=== PATIENT | female | born 1960 | race Caucasian/White ===

== ENCOUNTER 2016-04-03 14:59 | Emergency (ER) | payer OTHER ==
--- NOTE | 2016-04-03 16:33 | DIAGNOSTIC IMAGING REPORT ---
PROCEDURE: XR KNEE 4 VIEWS - LEFT INDICATION: TRAUMA/INJURY TECHNIQUE: Four views. COMPARISON: MRI of the left knee dated 06/12/2007 FINDINGS: No fracture or dislocation. IMPRESSION: 1. Osteoarthritis. No fracture or dislocation.
--- NOTE | 2016-04-03 16:51 | ED CLINICAL REPORT ---
Clinical Report - Physicians/Mid Levels [facility] [address] [place] [address] 04/03/2016 15:00 [id number] Time Seen: 15:23 Apr 03 2016. Arrived- By private vehicle. Historian- patient. HISTORY OF PRESENT ILLNESS Chief Complaint: Injury to left knee. The injury happened just prior to arrival. Occurred at home. The patient sustained a direct blow. Patient did not fall. This was not an incised wound. Patient is experiencing mild pain. Patient denies injury to the head or neck. (fell today on the left side of the knee, as well as left wrist. Reports unable to straighten her right leg, consequently lost balance while doing some wood work, dealing with kindling/ fire wood etc). REVIEW OF SYSTEMS The patient has no pain on weight bearing. All systems otherwise negative, except as recorded above. PAST HISTORY Problems: Prior Injury, Same Area. Fibromyalgia. Constipation. Vomiting. Abdominal Pain. Back Injury. Intervertebral Disc Disease. Sciatica. Hematuria. Substance Abuse. DVT - Deep Venous Thrombosis. Fall. Contusion. Tetanus Status. Immunizations. Glaucoma. Back Pain. Bipolar Disorder. Thyroid Disease. Chronic Headache. Headache. LNMP - Last Normal Menstrual Period. Migraine Headache. Additional Surgeries: Bariatric Surgery. Cholecystectomy. Fracture Repair. Gastric bypass. Hip Surgery. Hysterectomy. Knee Surgery. Right foot surgery x 7. Shoulder Surgery. Medications: Stool Softener Oral. Advil Oral. Probiotic Oral. Vitamins Oral. Zofran Oral 4 mg, daily. Ambien Oral 12.5 mg, at bedtime. LORazepam Oral 0.5 mg, daily. Timoptic Ophthalmic. Lumigan Ophthalmic. Levothyroxine Sodium Oral 25 mcg, daily. movantik. LaMICtal Oral (Tablet 150 mg) 1 tablet, at bedtime. SEROquel Oral (Tablet 400 mg), at bedtime. Promethazine HCl Oral 25 mg, 4x a day. Acyclovir Oral 1 gm, daily. TiZANidine HCl Oral 4 mg, 4x a day. Gralise Oral (Tablet 600 mg) 4 tabs, daily. OxyCODONE HCl Oral 10 mg, 4x a day. Allergies: None. SOCIAL HISTORY Never smoker. No alcohol use or drug use. ADDITIONAL NOTES The nursing notes have been reviewed. PHYSICAL EXAM Vital Signs: 04/03/2016 15:16 BP: 110/71. HR: 104. RR: 18. O2 saturation: 98%. Temp: 98.1 F. Pain level now: 8/10. Appearance: Alert. No acute distress. Head: Head atraumatic. CVS: Normal heart rate and rhythm. Respiratory: No respiratory distress. Breath sounds normal. Skin: Skin warm. Normal skin color. (abrasion to escalante surfce of left distal forearm,). Extremities: Left knee: erythema, tenderness, swelling and ecchymosis located in the lateral joint line. Limited ROM secondary to pain (diminished flexion). (just distal to knee, ateral spect with swelling). No ligamentous laxity present. No joint effusion. No laceration, foreign body or deformity. Neuro, Vascular and Tendons: Vascular status intact. No pulse deficit present. Motor intact. No functional tendon deficit. Gait: No limping gait. Neuro: Oriented X 3. LABS, X-RAYS, AND EKG Lt Knee X-ray: (IMPRESSION: 1. Osteoarthritis. No fracture or dislocation. Electronically Final signed by:Saurabh Robles MD 04/03/2016 4:37:20 PM). PROGRESS AND PROCEDURES Course of Care: no snuff box tenderness, full rom of wrist. no signs of acute knee fx. No other injury. mechanical fall. Stable. No sob/ chest pain. No head injury. 04/03/2016 15:16 BP: 110/71. HR: 104. RR: 18. O2 saturation: 98%. Temp: 98.1 F. Pain level now: 8/10. Patient is stable. Symptoms better. Patient/family counseled. Disposition: Discharged. CLINICAL IMPRESSION Contusion to the left wrist, left knee and left lower leg. INSTRUCTIONS Apply ice. Elevate affected areas above chest level. You may walk and bear weight as tolerated. OTC Medications: Take OTC medications according to label instructions. Available over the counter. Acetaminophen (available over the counter): take according to label instructions. Motrin (available over the counter): take according to label instructions. Follow-up: Follow up with your doctor as needed. (Electronically signed by Nae Herring P.A.-C 04/03/2016 17:07)
--- NOTE | 2016-04-03 16:51 | ED ORDER SUMMARY ---
..... Patient: SANTOS ESCALANTE [facility] VisitID: [id number] [place] [address] 55y, F Registration Date/Time: 04/03/2016 ORDER SHEET Weight: 49.8 kg (stated) Allergies: None GENERAL ORDERS: Knee 4V Left Urgent (15:29 04/03/2016 EKoroleva P.A.-C) (Ack 15:36 NHouse ER Tech1) (17:31 Shi R.N.) Rhett Wrap (16:30 04/03/2016 EKoroleva P.A.-C) (16:42 LNations ER Tech1) MEDICATION ORDERS: Dilaudid IM 1 mg (HIGH ALERT MEDICATION, NOW) (16:49 04/03/2016 EKoroleva P.A.-C) (Ack 16:52 Shi R.N.) (17:18 Shi R.N.) Phenergan IM 12.5 mg (HIGH ALERT MEDICATION, NOW) (16:49 04/03/2016 EKoroleva P.A.-C) (Ack 16:52 Shi R.N.) (17:19 Shi R.N.) IV FLUIDS: ORDER SHEET NOTES: [Electronically signed by Nae HerringAValencia-C (17:07 04/03/2016)] [Electronically signed by Belkys Kwok R.N. (17:32 04/03/2016)] [Electronically locked/signed by Belkys Kwok R.N. (17:32 04/03/2016)]
--- NOTE | 2016-04-03 16:51 | ED ORDER SUMMARY ---
..... Patient: SANTOS ESCALANTE [facility] VisitID: [id number] [place] [address] 55y, F Registration Date/Time: 04/03/2016 ORDER SHEET Weight: 49.8 kg (stated) Allergies: None GENERAL ORDERS: Knee 4V Left Urgent (15:29 04/03/2016 EKoroleva P.A.-C) (Ack 15:36 NHouse ER Tech1) (17:31 Shi R.N.) Rhett Wrap (16:30 04/03/2016 EKoroleva P.A.-C) (16:42 LNations ER Tech1) MEDICATION ORDERS: Dilaudid IM 1 mg (HIGH ALERT MEDICATION, NOW) (16:49 04/03/2016 EKoroleva P.A.-C) (Ack 16:52 Shi R.N.) (17:18 Shi R.N.) Phenergan IM 12.5 mg (HIGH ALERT MEDICATION, NOW) (16:49 04/03/2016 EKoroleva P.A.-C) (Ack 16:52 Shi R.N.) (17:19 Shi R.N.) IV FLUIDS: ORDER SHEET NOTES: [Electronically signed by Nae HerringAValencia-C (17:07 04/03/2016)] [Electronically signed by Belkys Kwok R.N. (17:32 04/03/2016)] [Electronically locked/signed by Belkys Kwok R.N. (17:32 04/03/2016)]
--- NOTE | 2016-04-03 16:51 | ED NURSING NOTES ---
Clinical Report - Nurses [facility] [address] [place] [address] 04/03/2016 15:00 [id number] Triage time 15:16 Apr 03 2016. Acuity: LEVEL 4. Chief Complaint: FALL, onto a tile surface. 15:27 04/03/16. Alert. No acute distress. SEPSIS SCREEN: Sepsis Screen. Negative (no infection suspected/documented). MURALI COMA SCORE: [place] Coma Scale: 15- eyes open spontaneously (4); best verbal response- oriented x 4 (5); best motor response- obeys commands (6). --15:27 Akila Thomas 15:16 04/03/16. BP: 110/71. HR: 104. RR: 18. O2 saturation: 98% on room air. Temp: 98.1 F. Pain level now: 8/10. --15:27 Akila Thomas 15:27 04/03/16. --15:27 Akila Thomas. Weight: 49.8 kg stated. Height/Length: 60 inches Per Patient. BMI: 21.4. --15:27 Akila Thomas. Medications OxyCODONE HCl Oral 10 mg, 4x a day. --15:20 Akila Thomas Gralise Oral (Tablet 600 mg) 4 tabs, daily. --15:21 Akila Thomas TiZANidine HCl Oral 4 mg, 4x a day. --15:21 Akila Thomas Acyclovir Oral 1 gm, daily. --15:21 Akila Thomas Promethazine HCl Oral 25 mg, 4x a day. --15:21 Aklia Thomas SEROquel Oral (Tablet 400 mg), at bedtime. --15:22 Akila Thomas LaMICtal Oral (Tablet 150 mg) 1 tablet, at bedtime. --15:22 Akila Thomas movantik. --15:22 Akila Thomas Levothyroxine Sodium Oral 25 mcg, daily. --15:22 Akila Thomas Lumigan Ophthalmic. --15:22 Akila Thomas Timoptic Ophthalmic. --15: Akila Thomas LORazepam Oral 0.5 mg, daily. --15:23 Akila Thomas Ambien Oral 12.5 mg, at bedtime. --15:23 Akila Thomas Zofran Oral 4 mg, daily. --15:23 Akila Thomas Vitamins Oral. --15:24 Akila Thomas Probiotic Oral. --15:24 Akila Thomas Advil Oral. --15:24 Akila Thomas Stool Softener Oral. --15:24 Akila Thomas. Medication/allergy information source: the patient. --15: Akila Thomas. Allergies None. --15:24 Akila Thomas. History Arrived by EMS. Historian: patient. Accompanied by family. Location of injuries: lower back, mid-back, left wrist and left knee. This occurred just prior to arrival. ( Pt states that she lost her balance when putting firewood into fire. No LOC, denies dizziness. Pt walked down stairs to get to [facility], was able to bear weight.). She has had extremity pain, back pain and trouble walking. Limited ROM present. No loss of consciousness. No alteration in mental status, neck pain or difficulty breathing. Treatment ADVERTISING COPYWRITER: Ice and splint. See EMS report. Trauma activation: Pre-hospital notification of patient arrival was received. PAST MEDICAL HX: No history of diabetes mellitus, heart disease, stroke or hypertension. No history of dementia or osteoporosis. Tetanus status: up-to-date. Immunizations: up-to-date. SOCIAL HX: Never smoker. No alcohol use or drug use. FALL RISK ASSESSMENT: Fall risk assessment completed. No fall risk identified. NUTRITIONAL RISK ASSESSMENT: The nutritional risk assessment revealed no deficiencies. FUNCTIONAL ASSESSMENT: Functional assessment: no impairments noted. LEARNING NEEDS ASSESSMENT: The learning needs assessment revealed no barriers. SKIN INTEGRITY ASSESSMENT: Skin integrity risk assessment completed. No skin integrity risk identified. --15:27 Akila Thomas Primary physician (Pillo). --15:27 Akila Thomas. PROBLEMS: Prior Injury, Same Area. Fibromyalgia. Constipation. Vomiting. Abdominal Pain. Back Injury. Intervertebral Disc Disease. Sciatica. Hematuria. Substance Abuse. DVT - Deep Venous Thrombosis. Fall. Contusion. Tetanus Status. Immunizations. Glaucoma. Back Pain. Bipolar Disorder. Thyroid Disease. Chronic Headache. Headache. LNMP - Last Normal Menstrual Period. Migraine Headache. --15:25 Akila Thomas. ADDITIONAL SURGERIES: Bariatric Surgery. Cholecystectomy. Fracture Repair. Gastric bypass. Hip Surgery. Hysterectomy. Knee Surgery. Right foot surgery x 7. Shoulder Surgery. --15:25 Akila Thomas. Assessment The patient states feels the same. GENERAL / NEURO / PSYCH: Alert. Oriented X 4. Appears in pain. Patient appears calm and cooperative. SKIN: Mucous membranes are pink. Skin is warm and dry. --15:27 Akila Thomas. Interventions ID band on patient. --15:27 Akila Thomas. PHYSICAL ASSESSMENT 16:02 04/03/16. To room via wheelchair. Patient gowned. GENERAL / NEURO / PSYCH: Alert. Oriented X 4. Appears in pain. HEENT: Pupils equal, round and reactive to light. Head non-tender. RESPIRATORY: Respirations not labored. CVS: Pulses within normal limits. Capillary refill less than 2 seconds. GI / : Abdomen soft and nontender. EXTREMITIES: Extremities exhibit normal ROM. Neuro-vascular status intact to the extremity. Left knee: tenderness and ecchymosis. SKIN: Skin intact. Skin is warm and dry. --16:47 Akila Thomas. 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 --16:35 Neris Greene ER Tech1 15:30 04/03/16. Two patient identifiers checked. Patient placed in chair. Brakes of chair on. Patient ready for evaluation- chart flagged and PA notified. --16:50 Akila Thomas 17:08 04/03/2016 Dilaudid (HYDROmorphone HCl PF) IM 1 mg given. Given in the left ventral gluteus. Allergies verified, confirmed 5 rights and sedative warning given to the patient. --17:18 Belkys Kwok R.N. 17:09 04/03/2016 Phenergan (Promethazine HCl) IM 12.5 mg given. Given in the left ventral gluteus. Allergies verified, confirmed 5 rights and sedative warning given to the patient. --17:19 Belkys Kwok R.N. 17:05. The patient is calm. Overall patient status is the same- she states feels the same (had to assist pt to get her shoes on and then to BR). GENERAL / NEURO / PSYCH: Alert. Oriented X 4. RESPIRATORY: No respiratory distress. --17:31 Belkys Kwok R.N. DISPOSITION / DISCHARGE Departure time: 1705. Condition at departure: unchanged. Fall risk assessment completed. Risk factors identified include patient medications and impairment of mobility. No learning barriers present. Discharge instructions provided and reviewed with the patient. Reviewed medication(s). Prescription(s) given to the patient. Patient verbalized understanding. Written instructions provided in Marshallese. The patient was discharged home and accompanied by spouse. She left the Emergency Department ambulatory and via private vehicle. --17:30 Belkys Kwok R.N. 17:05 04/03/16. BP: 101/61. HR: 95. RR: 16. O2 saturation: 100% on room air. Pain level now: 5/10. --17:30 Belkys Kwok R.N. Locked/Released at 04/03/2016 17:32 by Belkys Kwok R.N.
--- NOTE | 2016-04-03 16:51 | ED NURSING NOTES ---
Clinical Report - Nurses [facility] [address] [place] [address] 04/03/2016 15:00 [id number] TRI[facility] Triage time 15:16 Apr 03 2016. Acuity: LEVEL 4. Chief Complaint: FALL, onto a tile surface. 15:27 04/03/16. Alert. No acute distress. SEPSIS SCREEN: Sepsis Screen. Negative (no infection suspected/documented). MURALI COMA SCORE: [place] Coma Scale: 15- eyes open spontaneously (4); best verbal response- oriented x 4 (5); best motor response- obeys commands (6). --15:27 Akila Thomas 15:16 04/03/16. BP: 110/71. HR: 104. RR: 18. O2 saturation: 98% on room air. Temp: 98.1 F. Pain level now: 8/10. --15:27 Akila Thomas 15:27 04/03/16. --15:27 Akila Thomas. Weight: 49.8 kg stated. Height/Length: 60 inches Per Patient. BMI: 21.4. --15:27 Akila Thomas. Medications OxyCODONE HCl Oral 10 mg, 4x a day. --15:20 Akila Thomas Gralise Oral (Tablet 600 mg) 4 tabs, daily. --15:21 Akila Thomas TiZANidine HCl Oral 4 mg, 4x a day. --15:21 Akila Thomas Acyclovir Oral 1 gm, daily. --15:21 Akila Thomas Promethazine HCl Oral 25 mg, 4x a day. --15:21 Akila Thomas SEROquel Oral (Tablet 400 mg), at bedtime. --15:22 Akila Thomas LaMICtal Oral (Tablet 150 mg) 1 tablet, at bedtime. --15:22 Akila Thomas movantik. --15:22 Akila Thomas Levothyroxine Sodium Oral 25 mcg, daily. --15:22 Akila Thomas Lumigan Ophthalmic. --15:22 Akila Thomas Timoptic Ophthalmic. --15: Akila Thomas LORazepam Oral 0.5 mg, daily. --15:23 Akila Thomas Ambien Oral 12.5 mg, at bedtime. --15:23 Akila Thomas Zofran Oral 4 mg, daily. --15:23 Akila Thomas Vitamins Oral. --15:24 Akila Thomas Probiotic Oral. --15:24 Akila Thomas Advil Oral. --15:24 Akila Thomas Stool Softener Oral. --15:24 Akila Thomas. Medication/allergy information source: the patient. --15: Akila Thomas. Allergies None. --15:24 Akila Thomas. History Arrived by EMS. Historian: patient. Accompanied by family. Location of injuries: lower back, mid-back, left wrist and left knee. This occurred just prior to arrival. ( Pt states that she lost her balance when putting firewood into fire. No LOC, denies dizziness. Pt walked down stairs to get to [facility], was able to bear weight.). She has had extremity pain, back pain and trouble walking. Limited ROM present. No loss of consciousness. No alteration in mental status, neck pain or difficulty breathing. Treatment CONSTRUCTION FOREMAN: Ice and splint. See EMS report. Trauma activation: Pre-hospital notification of patient arrival was received. PAST MEDICAL HX: No history of diabetes mellitus, heart disease, stroke or hypertension. No history of dementia or osteoporosis. Tetanus status: up-to-date. Immunizations: up-to-date. SOCIAL HX: Never smoker. No alcohol use or drug use. FALL RISK ASSESSMENT: Fall risk assessment completed. No fall risk identified. NUTRITIONAL RISK ASSESSMENT: The nutritional risk assessment revealed no deficiencies. FUNCTIONAL ASSESSMENT: Functional assessment: no impairments noted. LEARNING NEEDS ASSESSMENT: The learning needs assessment revealed no barriers. SKIN INTEGRITY ASSESSMENT: Skin integrity risk assessment completed. No skin integrity risk identified. --15:27 Akila Thomas Primary physician (Pillo). --15:27 Akila Thomas. PROBLEMS: Prior Injury, Same Area. Fibromyalgia. Constipation. Vomiting. Abdominal Pain. Back Injury. Intervertebral Disc Disease. Sciatica. Hematuria. Substance Abuse. DVT - Deep Venous Thrombosis. Fall. Contusion. Tetanus Status. Immunizations. Glaucoma. Back Pain. Bipolar Disorder. Thyroid Disease. Chronic Headache. Headache. LNMP - Last Normal Menstrual Period. Migraine Headache. --15:25 Akila Thomas. ADDITIONAL SURGERIES: Bariatric Surgery. Cholecystectomy. Fracture Repair. Gastric bypass. Hip Surgery. Hysterectomy. Knee Surgery. Right foot surgery x 7. Shoulder Surgery. --15:25 Akila Thomas. Assessment The patient states feels the same. GENERAL / NEURO / PSYCH: Alert. Oriented X 4. Appears in pain. Patient appears calm and cooperative. SKIN: Mucous membranes are pink. Skin is warm and dry. --15:27 Akila Thomas. Interventions ID band on patient. --15:27 Akila Thomas. PHYSICAL ASSESSMENT 16:02 04/03/16. To room via wheelchair. Patient gowned. GENERAL / NEURO / PSYCH: Alert. Oriented X 4. Appears in pain. HEENT: Pupils equal, round and reactive to light. Head non-tender. RESPIRATORY: Respirations not labored. CVS: Pulses within normal limits. Capillary refill less than 2 seconds. GI / : Abdomen soft and nontender. EXTREMITIES: Extremities exhibit normal ROM. Neuro-vascular status intact to the extremity. Left knee: tenderness and ecchymosis. SKIN: Skin intact. Skin is warm and dry. --16:47 Akila Thomas. 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 --16:35 Neris Greene ER Tech1 15:30 04/03/16. Two patient identifiers checked. Patient placed in chair. Brakes of chair on. Patient ready for evaluation- chart flagged and PA notified. --16:50 Akila Thomas 17:08 04/03/2016 Dilaudid (HYDROmorphone HCl PF) IM 1 mg given. Given in the left ventral gluteus. Allergies verified, confirmed 5 rights and sedative warning given to the patient. --17:18 Belkys Kwok R.N. 17:09 04/03/2016 Phenergan (Promethazine HCl) IM 12.5 mg given. Given in the left ventral gluteus. Allergies verified, confirmed 5 rights and sedative warning given to the patient. --17:19 Belkys Kwok R.N. 17:05. The patient is calm. Overall patient status is the same- she states feels the same (had to assist pt to get her shoes on and then to BR). GENERAL / NEURO / PSYCH: Alert. Oriented X 4. RESPIRATORY: No respiratory distress. --17:31 Belkys Kwok R.N. DISPOSITION / DISCHARGE Departure time: 1705. Condition at departure: unchanged. Fall risk assessment completed. Risk factors identified include patient medications and impairment of mobility. No learning barriers present. Discharge instructions provided and reviewed with the patient. Reviewed medication(s). Prescription(s) given to the patient. Patient verbalized understanding. Written instructions provided in Marshallese. The patient was discharged home and accompanied by spouse. She left the Emergency Department ambulatory and via private vehicle. --17:30 Belkys Kwok R.N. 17:05 04/03/16. BP: 101/61. HR: 95. RR: 16. O2 saturation: 100% on room air. Pain level now: 5/10. --17:30 Belkys Kwok R.N. Locked/Released at 04/03/2016 17:32 by Belkys Kwok R.N.
--- NOTE | 2016-04-03 17:32 | ED MED RECONCILIATION SUMMARY ---
Patient: SANTOS ESCLAANTE Medication Reconciliation Report [facility] VisitID: [id number] [address] [place] [address] 55y, F Registration Date/Time: 04/03/2016 Weight: 49.8 kg Height/Length: 60 in. BMI: 21.4 ALLERGIES: None The patient's Home Medications are listed below: THE FOLLOWING MEDICATIONS NEED TO BE RECONCILED: Acyclovir Oral 1 gm, daily Advil Oral Ambien Oral 12.5 mg, at bedtime Gralise Oral (600 mg) 4 tabs, daily LaMICtal Oral (150 mg) 1 tablet, at bedtime Levothyroxine Sodium Oral 25 mcg, daily LORazepam Oral 0.5 mg, daily Lumigan Ophthalmic movantik OxyCODONE HCl Oral 10 mg, 4x a day Vitamins Oral Probiotic Oral Promethazine HCl Oral 25 mg, 4x a day SEROquel Oral (400 mg), at bedtime Stool Softener Oral Timoptic Ophthalmic TiZANidine HCl Oral 4 mg, 4x a day Zofran Oral 4 mg, daily The source(s) of the original Home Medication information: patient The following Medications were given to the patient in the Emergency Department: Dilaudid [IM] IM 1 mg, administered: 04/03/2016 5:08:00 PM Phenergan [IM] IM 12.5 mg, administered: 04/03/2016 5:09:00 PM The following Medications were prescribed to the patient: Take OTC medications according to label instructions. Available over the counter. -- Nae Herring P.A.-Vivienne Acetaminophen (available over the counter): take according to label instructions. -- Nae Herring, P.A.-Vivienne Motrin (available over the counter): take according to label instructions. -- Nae Herring P.Lorrie-C
--- NOTE | 2016-04-03 17:32 | ED MAR SUMMARY ---
..... Medication Administration Record [facility] [address] [place] [address] Patient: SANTOS ESCALANTE Visit ID: [id number] 55y, F Weight: 49.8 kg Height/Length: 60 in BMI: 21.4 ALLERGIES: None Given 17:04/03/2016 Belkys Kwok R.N. Medication Administered: DILAUDID [IM] (HYDROMORPHONE HCL PF), Dose: 1 mg IM. Medication Ordered: Dilaudid IM 1 mg (HIGH ALERT MEDICATION, NOW). Given 17:04/03/2016 Belkys Kwok RValenciaN. Medication Administered: PHENERGAN [IM] (PROMETHAZINE HCL), Dose: 12.5 mg IM. Medication Ordered: Phenergan IM 12.5 mg (HIGH ALERT MEDICATION, NOW).
--- NOTE | 2016-04-03 17:32 | ED MED RECONCILIATION SUMMARY ---
Patient: SANTOS ESCALANTE Medication Reconciliation Report [facility] VisitID: [id number] [address] [place] [address] 55y, F Registration Date/Time: 04/03/2016 Weight: 49.8 kg Height/Length: 60 in. BMI: 21.4 ALLERGIES: None The patient's Home Medications are listed below: THE FOLLOWING MEDICATIONS NEED TO BE RECONCILED: Acyclovir Oral 1 gm, daily Advil Oral Ambien Oral 12.5 mg, at bedtime Gralise Oral (600 mg) 4 tabs, daily LaMICtal Oral (150 mg) 1 tablet, at bedtime Levothyroxine Sodium Oral 25 mcg, daily LORazepam Oral 0.5 mg, daily Lumigan Ophthalmic movantik OxyCODONE HCl Oral 10 mg, 4x a day Vitamins Oral Probiotic Oral Promethazine HCl Oral 25 mg, 4x a day SEROquel Oral (400 mg), at bedtime Stool Softener Oral Timoptic Ophthalmic TiZANidine HCl Oral 4 mg, 4x a day Zofran Oral 4 mg, daily The source(s) of the original Home Medication information: patient The following Medications were given to the patient in the Emergency Department: Dilaudid [IM] IM 1 mg, administered: 04/03/2016 5:08:00 PM Phenergan [IM] IM 12.5 mg, administered: 04/03/2016 5:09:00 PM The following Medications were prescribed to the patient: Take OTC medications according to label instructions. Available over the counter. -- Nae Herring P.A.-Vivienne Acetaminophen (available over the counter): take according to label instructions. -- Nae Herring, P.A.-Vivienne Motrin (available over the counter): take according to label instructions. -- Nae Herring P.Lorrie-C
--- NOTE | 2016-04-03 17:32 | ED DISCHARGE INSTRUCTIONS ---
Patient: SANTOS ESCALANTE General Instructions [facility] VisitID: [id number] [place] [address] 55y, F Registration Date/Time: 04/03/2016 Contusion to the left wrist, left knee and left lower leg. INSTRUCTIONS Apply ice. Elevate affected areas above chest level. You may walk and bear weight as tolerated. OTC Medications: Take OTC medications according to label instructions. Available over the counter. Acetaminophen (available over the counter): take according to label instructions. Motrin (available over the counter): take according to label instructions. Follow-up: Follow up with your doctor as needed. ADDITIONAL INFORMATION Contusion:Upper Extremity You have a contusion of your upper extremity (arm, wrist, hand or fingers). This causes local pain, swelling and sometimes bruising. There are no broken bones. This injury takes a few days to a few weeks to heal. A sling may be provided for comfort and arm support. Home Care: 1) Keep your arm elevated to reduce pain and swelling. This is very important during the first 48 hours. 2) Apply an ice pack (ice cubes in a plastic bag, wrapped in a towel) over the injured area for 20 minutes every 1-2 hours the first day for pain relief. Continue this 3-4 times a day until the pain and swelling goes away. 3) You may use acetaminophen (Tylenol) or ibuprofen (Motrin, Advil) to control pain, unless another pain medicine was prescribed. [ NOTE : If you have chronic liver or kidney disease or ever had a stomach ulcer or GI bleeding, talk with your doctor before using these medicines.] 4) If a sling was provided, you may remove it to shower or bathe. Do not wear it for more than one week or it may cause joint stiffness. Follow Up with your doctor or this facility if you are not starting to improve within the next THREE days. [NOTE: If X-rays were taken, they will be reviewed by a radiologist. You will be notified of any new findings that may affect your care.] Get Prompt Medical Attention if any of the following occur: -- Pain or swelling increases -- Redness, warmth or drainage -- Hand or fingers becomes cold, blue, numb or tingly Contusion:Lower Extremity You have a CONTUSION of your LOWER extremity (leg, knee, ankle, foot, or toes). This causes local pain, swelling and sometimes bruising. There are no broken bones. This injury may take from a few days to a few weeks to heal. Home Care: 1) Keep your leg elevated to reduce pain and swelling. When sleeping, place a pillow under the injured leg. When sitting, support the injured leg so it is level with your waist. This is very important during the first 48 hours. 2) If CRUTCHES have been advised, do not bear full weight on the injured leg until you can do so without pain. You may return to sports when you are able to hop and run on the injured leg without pain. 3) Apply an ice pack (ice cubes in a plastic bag, wrapped in a towel) over the injured area for 20 minutes every 1-2 hours the first day for pain relief. Continue this 3-4 times a day until the pain and swelling goes away. 4) You may use acetaminophen (Tylenol) or ibuprofen (Motrin, Advil) to control pain, unless another pain medicine was prescribed. [ NOTE : If you have chronic liver or kidney disease or ever had a stomach ulcer or GI bleeding, talk with your doctor before using these medicines.] Follow Up with your doctor or this facility if you are not starting to improve within the next THREE days. [NOTE: If X-rays were taken, they will be reviewed by a radiologist. You will be notified of any new findings that may affect your care.] Get Prompt Medical Attention if any of the following occur: -- Pain or swelling increases -- Toes become cold, blue, numb or tingly -- Redness, warmth or drainage from the skin You have been given the following additional information: Contusion, Upper Extremity Contusion, Lower Extremity You may walk and bear weight as tolerated. (Electronically signed by Nae Herring P.A.-C 04/03/2016 17:07)
--- NOTE | 2016-04-03 17:32 | ED MAR SUMMARY ---
..... Medication Administration Record [facility] [address] [place] [address] Patient: SANTOS ESCALANTE Visit ID: [id number] 55y, F Weight: 49.8 kg Height/Length: 60 in BMI: 21.4 ALLERGIES: None Given 17:04/03/2016 Belkys Kwok R.N. Medication Administered: DILAUDID [IM] (HYDROMORPHONE HCL PF), Dose: 1 mg IM. Medication Ordered: Dilaudid IM 1 mg (HIGH ALERT MEDICATION, NOW). Given 17:04/03/2016 Belkys Kwok RValenciaN. Medication Administered: PHENERGAN [IM] (PROMETHAZINE HCL), Dose: 12.5 mg IM. Medication Ordered: Phenergan IM 12.5 mg (HIGH ALERT MEDICATION, NOW).
== END 2016-04-03 17:05 | disposition home or self-care (01) ==
LOC: ED SRH 14:59
DX: S60.212A Contusion of left wrist, initial encounter (principal); S80.02XA Contusion of left knee, initial encounter; S80.12XA Contusion of left lower leg, initial encounter; W19.XXXA Unspecified fall, initial encounter; Y93.89 Activity, other specified; Y92.009 Unspecified place in unspecified non-institutional (private) residence as the place of occurrence of the external cause; Y99.9 Unspecified external cause status; E07.9 Disorder of thyroid, unspecified; Z79.891 Long term (current) use of opiate analgesic; Z79.899 Other long term (current) drug therapy

== ENCOUNTER 2016-07-23 11:39 | Emergency (ER) | payer OTHER ==
--- NOTE | 2016-07-23 14:29 | DIAGNOSTIC IMAGING REPORT ---
PROCEDURE: XR CHEST 1 VIEW INDICATION: PALPIATIONS TECHNIQUE: Portable AP view (1410 hours). COMPARISON: Compared to CT thorax on 09/15/2013 and chest x-ray on 08/15/2011. FINDINGS: Allowing for overlying wires and electrodes, lungs are clear. Heart and mediastinum are normal. Thorax is normal. IMPRESSION: 1. Negative chest.
--- NOTE | 2016-07-23 15:45 | ED NURSING NOTES ---
Clinical Report - Nurses [facility] [address] [place] [address] 07/23/2016 11:41 Patient: SANTOS ESCALANTE TRIAGE Triage time 1150. Acuity: LEVEL 3. Chief Complaint: (Dizzy, weak, muscle twitches, chronic diarrhea). Alert. No acute distress. --12: Kelly Cervantes 11:59 07/23/16. BP: 114/64. HR: 100. RR: 18. O2 saturation: 100%. Temp: 97.9 F. Pain level now 09/03. --12:02 Kelly Cervantes. Weight: 48.5 kg. Height/Length: 60 inches. BMI: 20.9. --11:57 Kelly Cervantes. Medications Acyclovir Oral 1 gm, daily. Advil Oral. Ambien Oral 12.5 mg, at bedtime. Gralise Oral (Tablet 600 mg) 4 tabs, daily. LaMICtal Oral (Tablet 150 mg) 1 tablet, at bedtime. Levothyroxine Sodium Oral 25 mcg, daily. LORazepam Oral 0.5 mg, daily. Lumigan Ophthalmic. movantik. OxyCODONE HCl Oral 10 mg, 4x a day. Vitamins Oral. Probiotic Oral. Promethazine HCl Oral 25 mg, 4x a day. SEROquel Oral (Tablet 400 mg), at bedtime. Stool Softener Oral. Timoptic Ophthalmic. TiZANidine HCl Oral 4 mg, 4x a day. Zofran Oral 4 mg, daily. --12: Kelly Cervantes. Allergies None. --12:01 Kelly Cervantes. History Arrived by private vehicle. Historian: patient. Unaccompanied. Onset. (ranges from 5 years ago to 5 months ago). Treatment ACETYLENE TORCH BURNER: Seen within the last 30 days at another facility in the office; seen for similar symptoms. SOCIAL HX: Never smoker. --12:02 Kelly Cervantes. PROBLEMS: Fibromyalgia. Constipation. Vomiting. Abdominal Pain. Back Injury. Intervertebral Disc Disease. Sciatica. Hematuria. Substance Abuse. DVT - Deep Venous Thrombosis. Fall. Contusion. Glaucoma. Bipolar Disorder. Thyroid Disease. Chronic Headache. Headache. Migraine Headache. --12:02 Kelly Cervantes. ADDITIONAL SURGERIES: Bariatric Surgery. Cholecystectomy. Fracture Repair. Gastric bypass. Hip Surgery. Hysterectomy. Knee Surgery. Right foot surgery x 7. Shoulder Surgery. --12:02 Kelly Cervantes. Interventions ID band on patient. To treatment room. --12:02 Kelly Cervantes. PHYSICAL ASSESSMENT Ambulatory to room. Patient gowned. GENERAL / NEURO / PSYCH: Alert. Oriented X 4. Appears anxious. HEENT: Pupils equal, round and reactive to light. No facial asymmetry noted. Mucous membranes are pink. RESPIRATORY: Respirations not labored. Chest nontender. Breath sounds within normal limits. CVS: Normal sinus rhythm noted. Capillary refill less than 2 seconds. Pulses within normal limits. GI / : Abdomen soft and nontender and normal bowel sounds. SKIN: Skin intact. Skin is warm and dry. Normal skin turgor. --12:03 Kelly Cervantes. NURSING PROGRESS NOTES Patient gowned. Reassurance given. Two patient identifiers checked. Call light placed in reach. Bed placed in lowest position. Brakes of bed on. Patient ready for evaluation- chart flagged. --12:03 Kelly Cervantes EKG time: (0193). EKG was ordered, performed by a kang and shown to the ED physician. --12:09 Christiano Sandoval, ER Tech1 12:14 07/23/2016 Site #1 started via IV in the right antecubital space with an 22g angiocath, with aseptic technique and good blood return; one attempt. Blood drawn: rainbow set. Labeled in the presence of the patient and sent to the lab. Saline lock flushed with 10 mL saline. --12:14 Kelly Cervantes Patient informed about reason for wait. Patient waiting for disposition. --14:42 Kelly Cervantes 14:42 07/23/16. BP: 105/64. HR: 94. RR: 16. O2 saturation: 100%. Pain level now /10. --14:42 Kelly Cervantes. DISPOSITION / DISCHARGE 15:52 07/23/2016 Site #1 removed upon discharge. Catheter intact. Pressure dressing applied. --15:52 Kelly Cervantes Departure time: 1550. Condition at departure: unchanged and stable. No learning barriers present. Discharge instructions provided and reviewed with the patient. Patient verbalized understanding. Written instructions provided in Pashto. The patient was discharged by the physician. She was discharged home and unaccompanied at time of discharge. She left the Emergency Department ambulatory and via private vehicle. Patient driving. --15:52 Kelly Cervantes 15:51 07/23/16. BP: 111/62. HR: 89. RR: 19. O2 saturation: 100%. Pain level now 09/03. --15:52 Kelly Cervantes. Locked/Released at 07/23/2016 15:52 by Kelly Cervantes,
--- NOTE | 2016-07-23 15:45 | ED ORDER SUMMARY ---
..... Patient: SANTOS ESCALANTE OrderSheet [facility] VisitID: [id number] [place] [address] 55y, F Registration Date/Time: 07/23/2016 ORDER SHEET Weight: 48.5 kg Allergies: None GENERAL ORDERS: CBC w Diff Urgent (11:58 07/23/2016 Selin ALVAREZ) (Ack 11:59 LNations ER Tech1) (12:13 EBonham) CMP Urgent (11:58 07/23/2016 Selin ALVAREZ) (Ack 11:59 LNations ER Tech1) (12:13 EBonham) UA-Culture if indicated Urgent (11:58 07/23/2016 Selin ALVAREZ) (Ack 11:59 LNations ER Tech1) (14:26 ALawrence ER Tech1) Amylase Urgent (11:58 07/23/2016 Selin ALVAREZ) (Ack 12:00 LNations ER Tech1) (12:13 EBonham) Lipase Urgent (11:58 07/23/2016 Selin ALVAREZ) (Ack 12:00 LNations ER Tech1) (12:13 EBonham) CPK Urgent (11:58 07/23/2016 Selin ALVAREZ) (Ack 12:00 LNations ER Tech1) (12:13 EBonham) Troponin-I Urgent (11:58 07/23/2016 Selin ALVAREZ) (Ack 12:00 LNations ER Tech1) (12:13 EBonham) BNP Urgent (11:58 07/23/2016 Selin ALVAREZ) (Ack 12:00 LNations ER Tech1) (12:13 EBonham) TSH Urgent (11:58 07/23/2016 Selin ALVAREZ) (Ack 12:00 LNations ER Tech1) (12:13 EBonmargarette) EKG - ER Stat (11:58 07/23/2016 Selin ALVAREZ) (Ack 11:59 LNations ER Tech1) (12:00 PWeiler ER Tech1) Chest 1V Urgent (14:00 07/23/2016 Selin ALVAREZ) (Ack 14:08 LNations ER Tech1) MEDICATION ORDERS: IV FLUIDS: IV Saline Lock (11:58 07/23/2016 Selin ALVAREZ) (12:14 Nicole) ORDER SHEET NOTES: [Electronically signed by Kelly Cervantes (15:52 07/23/2016)] [Electronically signed by Jim Segundo MD (19:26 07/30/2016)] [Electronically locked/signed by Kelly Cervantes (15:52 07/23/2016)]
--- NOTE | 2016-07-23 15:45 | ED NURSING NOTES ---
Clinical Report - Nurses [facility] [address] [place] [address] 07/23/2016 11:41 Patient: SANTOS ESCALANTE TRIAGE Triage time 1150. Acuity: LEVEL 3. Chief Complaint: (Dizzy, weak, muscle twitches, chronic diarrhea). Alert. No acute distress. --12: Kelly Cervantes 11:59 07/23/16. BP: 114/64. HR: 100. RR: 18. O2 saturation: 100%. Temp: 97.9 F. Pain level now 09/03. --12:02 Kelly Cervantes. Weight: 48.5 kg. Height/Length: 60 inches. BMI: 20.9. --11:57 Kelly Cervantes. Medications Acyclovir Oral 1 gm, daily. Advil Oral. Ambien Oral 12.5 mg, at bedtime. Gralise Oral (Tablet 600 mg) 4 tabs, daily. LaMICtal Oral (Tablet 150 mg) 1 tablet, at bedtime. Levothyroxine Sodium Oral 25 mcg, daily. LORazepam Oral 0.5 mg, daily. Lumigan Ophthalmic. movantik. OxyCODONE HCl Oral 10 mg, 4x a day. Vitamins Oral. Probiotic Oral. Promethazine HCl Oral 25 mg, 4x a day. SEROquel Oral (Tablet 400 mg), at bedtime. Stool Softener Oral. Timoptic Ophthalmic. TiZANidine HCl Oral 4 mg, 4x a day. Zofran Oral 4 mg, daily. --12: Kelly Cervantes. Allergies None. --12:01 Kelly Cervantes. History Arrived by private vehicle. Historian: patient. Unaccompanied. Onset. (ranges from 5 years ago to 5 months ago). Treatment LINEMAN: Seen within the last 30 days at another facility in the office; seen for similar symptoms. SOCIAL HX: Never smoker. --12:02 Kelly Cervantes. PROBLEMS: Fibromyalgia. Constipation. Vomiting. Abdominal Pain. Back Injury. Intervertebral Disc Disease. Sciatica. Hematuria. Substance Abuse. DVT - Deep Venous Thrombosis. Fall. Contusion. Glaucoma. Bipolar Disorder. Thyroid Disease. Chronic Headache. Headache. Migraine Headache. --12:02 Kelly Cervantes. ADDITIONAL SURGERIES: Bariatric Surgery. Cholecystectomy. Fracture Repair. Gastric bypass. Hip Surgery. Hysterectomy. Knee Surgery. Right foot surgery x 7. Shoulder Surgery. --12:02 Kelly Cervantes. Interventions ID band on patient. To treatment room. --12:02 Kelly Cervantes. PHYSICAL ASSESSMENT Ambulatory to room. Patient gowned. GENERAL / NEURO / PSYCH: Alert. Oriented X 4. Appears anxious. HEENT: Pupils equal, round and reactive to light. No facial asymmetry noted. Mucous membranes are pink. RESPIRATORY: Respirations not labored. Chest nontender. Breath sounds within normal limits. CVS: Normal sinus rhythm noted. Capillary refill less than 2 seconds. Pulses within normal limits. GI / : Abdomen soft and nontender and normal bowel sounds. SKIN: Skin intact. Skin is warm and dry. Normal skin turgor. --12:03 Kelly Cervantes. NURSING PROGRESS NOTES Patient gowned. Reassurance given. Two patient identifiers checked. Call light placed in reach. Bed placed in lowest position. Brakes of bed on. Patient ready for evaluation- chart flagged. --12:03 Kelly Cervantes EKG time: (9373). EKG was ordered, performed by a kang and shown to the ED physician. --12:09 Christiano Sandoval, ER Tech1 12:14 07/23/2016 Site #1 started via IV in the right antecubital space with an 22g angiocath, with aseptic technique and good blood return; one attempt. Blood drawn: rainbow set. Labeled in the presence of the patient and sent to the lab. Saline lock flushed with 10 mL saline. --12:14 Kelly Cervantes Patient informed about reason for wait. Patient waiting for disposition. --14:42 Kelly Cervantes 14:42 07/23/16. BP: 105/64. HR: 94. RR: 16. O2 saturation: 100%. Pain level now /10. --14:42 Kelly Cervantes. DISPOSITION / DISCHARGE 15:52 07/23/2016 Site #1 removed upon discharge. Catheter intact. Pressure dressing applied. --15:52 Kelly Cervantes Departure time: 1550. Condition at departure: unchanged and stable. No learning barriers present. Discharge instructions provided and reviewed with the patient. Patient verbalized understanding. Written instructions provided in Kyrgyz. The patient was discharged by the physician. She was discharged home and unaccompanied at time of discharge. She left the Emergency Department ambulatory and via private vehicle. Patient driving. --15:52 Kelly Cervantes 15:51 07/23/16. BP: 111/62. HR: 89. RR: 19. O2 saturation: 100%. Pain level now 09/03. --15:52 Kelly Cervantes. Locked/Released at 07/23/2016 15:52 by Kelly Cervantes,
--- NOTE | 2016-07-23 15:45 | ED ORDER SUMMARY ---
..... Patient: SANTOS ESCALANTE OrderSheet [facility] VisitID: [id number] [place] [address] 55y, F Registration Date/Time: 07/23/2016 ORDER SHEET Weight: 48.5 kg Allergies: None GENERAL ORDERS: CBC w Diff Urgent (11:58 07/23/2016 Selin ALVAREZ) (Ack 11:59 LNations ER Tech1) (12:13 EBonham) CMP Urgent (11:58 07/23/2016 Selin ALVAREZ) (Ack 11:59 LNations ER Tech1) (12:13 EBonham) UA-Culture if indicated Urgent (11:58 07/23/2016 Selin ALVAREZ) (Ack 11:59 LNations ER Tech1) (14:26 ALawrence ER Tech1) Amylase Urgent (11:58 07/23/2016 Selin ALVAREZ) (Ack 12:00 LNations ER Tech1) (12:13 EBonham) Lipase Urgent (11:58 07/23/2016 Selin ALVAREZ) (Ack 12:00 LNations ER Tech1) (12:13 EBonham) CPK Urgent (11:58 07/23/2016 Selin ALVAREZ) (Ack 12:00 LNations ER Tech1) (12:13 EBonham) Troponin-I Urgent (11:58 07/23/2016 Selin ALVAREZ) (Ack 12:00 LNations ER Tech1) (12:13 EBonham) BNP Urgent (11:58 07/23/2016 Selin ALVAREZ) (Ack 12:00 LNations ER Tech1) (12:13 EBonham) TSH Urgent (11:58 07/23/2016 Selin ALVAREZ) (Ack 12:00 LNations ER Tech1) (12:13 EBonmargarette) EKG - ER Stat (11:58 07/23/2016 Selin ALVAREZ) (Ack 11:59 LNations ER Tech1) (12:00 PWeiler ER Tech1) Chest 1V Urgent (14:00 07/23/2016 Selin ALVAREZ) (Ack 14:08 LNations ER Tech1) MEDICATION ORDERS: IV FLUIDS: IV Saline Lock (11:58 07/23/2016 Selin ALVAREZ) (12:14 Nicole) ORDER SHEET NOTES: [Electronically signed by Kelly Cervantes (15:52 07/23/2016)] [Electronically signed by Jim Segundo MD (19:26 07/30/2016)] [Electronically locked/signed by Kelly Cervantes (15:52 07/23/2016)]
--- NOTE | 2016-07-23 15:45 | ED CLINICAL REPORT ---
Clinical Report - Physicians/Mid Levels [facility] [address] [place] [address] 07/23/2016 11:41 Patient: SANTOS ESCALANTE Time Seen: 11:58. Arrived- By private vehicle. Historian- patient. HISTORY OF PRESENT ILLNESS Chief Complaint: dizzy, weak, muscle twitches, chronic diarrhea. This started about 5 months ago and is still present. It was gradual in onset and has been intermittent and waxing/waning. The patient has had muscle aches and weakness. (the patient presents with vague complaints of dizziness generalized weakness and muscle twitching in her legs and chronic diarrheawhich has been going on for at least 5 months. However, she also reports multiple events of this prior to that.). Recent medical care: The patient was seen recently at another facility in a clinic. Seen for similar symptoms. Diagnosis: unknown. REVIEW OF SYSTEMS No chills, fever, sweats, calf pain or chest pain. No cough, difficulty breathing or pedal edema. She has had muscle aches and fatigue. She has had palpitations. It has been similar to previous symptoms. She has had diarrhea (chronically). It has been watery. No bloody or blood-tinged diarrhea. All systems otherwise negative, except as recorded above. SOCIAL HISTORY Never smoker. No alcohol use or drug use. FAMILY HISTORY Denies family medical history. ADDITIONAL NOTES The nursing notes have been reviewed. PHYSICAL EXAM Vital Signs: 07/23/2016 11:59 BP: 114/64. HR: 100. RR: 18. O2 saturation: 100%. Temp: 97.9 F. Have been reviewed. Appearance: Alert. Eyes: Pupils equal, round and reactive to light. ENT: Pharynx normal. Neck: Normal inspection. Neck supple. CVS: Normal heart rate and rhythm. Heart sounds normal. Respiratory: No respiratory distress. Breath sounds normal. Abdomen: No visible injury. Soft and nontender. Bowel sounds normal. No organomegaly. No mass. Back: Normal inspection. Skin: Skin warm and dry. Normal skin color. Normal skin turgor. Extremities: Extremities exhibit normal ROM. No calf tenderness. No lower extremity edema. Neuro: No motor deficit. No sensory deficit. LABS, X-RAYS, AND EKG EKG: No acute ischemia. Rate: 101. EKG unchanged when compared with prior EKG. (30 Nov 2011). The study has been independently viewed by me. Chest X-ray: No acute disease. The X-rays were independently viewed by me. Laboratory Tests: UA-Culture if indicated: (GONSALO: 07/23/2016 13:30) ( MsgRcvd 07/23/2016 13:54) Final results Test Result Flag Units (Reference) URINE COLOR YELLOW URINE APPEARANCE CLEAR URINE GLUCOSE NEGATIVE (NEGATIVE) URINE BILIRUBIN NEGATIVE (NEGATIVE) URINE KETONE NEGATIVE (NEGATIVE) URINE SPECIFIC GRAVITY 1.010 (1.010-1.030) URINE PH 6.0 (5.0-8.0) URINE PROTEIN NEGATIVE (NEGATIVE) URINE UROBILINOGEN 0.2 EU/dL (0.2-1.0) URINE NITRITE NEGATIVE (NEGATIVE) URINE BLOOD NEGATIVE (NEGATIVE) URINE LEUK ESTERASE NEGATIVE (NEGATIVE) URINE RBC NONE SEEN rbc/hpf (0-1) URINE WBC NONE SEEN wbc/hpf (0-1) URINE EPITHELIAL CELLS NONE SEEN EPI/hpf (0-5) URINE BACTERIA NONE SEEN (NONE SEEN) URINE COMMENT CULT NOT INDICATED URINE CULTURES ARE SET-UP BASED ON THE FOLLOWING CRITERIA:POSITIVE NITRITEPOSITIVE LEUKOCYTE ESTERASEGREATER THAN 10 WHITE BLOOD CELLSMODERATE (2+) OR GREATER BACTERIA CBC w Diff: (GONSALO: 07/23/2016 12:10) ( MsgRcvd 07/23/2016 12:24) Final results Test Result Flag Units (Reference) WHITE BLOOD COUNT 6.2 K/uL (4.5-11.5) RED BLOOD COUNT 4.06 M/uL (4.00-5.20) HEMOGLOBIN 13.2 gm/dL (12.0-16.0) HEMATOCRIT 40.3 % (36.0-46.0) MEAN CELL VOLUME 99 fL (80-100) MEAN CORPUSCULAR HGB 33 pg (26-34) MEAN CORPUSCULAR HGB CONC 33 g/dL (31-37) RED CELL DISTRIBUTION WIDTH 14.3 % (11.6-14.8) PLATELET COUNT 205 K/uL (150-400) NEUTROPHIL % 56.8 % (50-75) LYMPH % 31.8 % (25-40) MONO % 10.3 % (3-14) EOSINOPHIL % 0.7 % (0-4) BASOPHIL % 0.4 % (0-2) BNP: (GONSALO: 07/23/2016 12:10) ( MsgRcvd 07/23/2016 12:48) Final results Test Result Flag Units (Reference) B-TYPE NATRIURETIC PEPTIDE 6.4 pg/ml (5-100) CMP: (GONSALO: 07/23/2016 12:10) ( MsgRcvd 07/23/2016 12:42) IP Test Result Flag Units (Reference) GLUCOSE 104 mg/dL (70-110) BUN 12 mg/dL (7-18) CREATININE 0.7 mg/dL (0.6-1.3) Estimated GFR >60 mL/min Estimated GFR- >60 mL/min Note: Persistent reduction over 3 months in eGFR<60 mL/min/1.73 m2 defines CKD. Patients with eGFR values>=60 mL/min/1.73 m2 may also have CKD if evidence ofpersistent proteinuria. Additional information may be foundat www.kidney.org. SODIUM 142 mmol/L (136-145) POTASSIUM 3.7 mmol/L (3.5-5.1) CHLORIDE 106 mmol/L (98-107) CARBON DIOXIDE 26 mmol/L (21-32) CALCIUM 8.5 mg/dL (8.5-10.1) TOTAL PROTEIN 6.5 g/dL (6.4-8.2) ALBUMIN 3.4 g/dL (3.3-5.0) BILIRUBIN, TOTAL 0.3 mg/dL (0.0-1.0) ALKALINE PHOSPHATASE 91 U/L (46-116) AST (SGOT) 44 H U/L (15-37) ALT (SGPT) 69 U/L (12-78) AMYLASE 86 U/L (25-115) CPK 120 U/L (24-260) TROPONIN I <0.05 ng/mL (0.00-1.5) TROPONIN REFERENCE RANGE:<0.1 NEGATIVE0.1-1.5 INDETERMINANT>1.5 POSITIVE . PROGRESS AND PROCEDURES Course of Care: Patient is stable. Patient/family counseled. Old medical records reviewed. Disposition: Discharged. Condition: stable. CLINICAL IMPRESSION Palpitations Paresthesia INSTRUCTIONS Warnings: Further evaluation is necessary. Your Current Medications: CONTINUE TAKING THE FOLLOWING MEDICATIONS: Acyclovir Oral : 1 gm daily. Advil Oral. Ambien Oral : 12.5 mg at bedtime. Gralise Oral : Tablet 600 mg, 4 tabs daily. LaMICtal Oral : Tablet 150 mg, 1 tablet at bedtime. Levothyroxine Sodium Oral : 25 mcg daily. LORazepam Oral : 0.5 mg daily. Lumigan Ophthalmic. movantik*. OxyCODONE HCl Oral : 10 mg 4x a day. Vitamins Oral. Probiotic Oral. Promethazine HCl Oral : 25 mg 4x a day. SEROquel Oral : Tablet 400 mg, at bedtime. Stool Softener Oral. Timoptic Ophthalmic. TiZANidine HCl Oral : 4 mg 4x a day. Zofran Oral : 4 mg daily. Follow-up: Follow up with a neurologist- as recommended by your primary care physician. Understanding of the discharge instructions verbalized by patient. Follow-up with: Dorian Ferro MD, [facility], , [facility], [address] [place] [address] Follow up in seven days. Call for the next available appointment. (Electronically signed by Jim Segundo MD 07/30/2016 19:26)
--- NOTE | 2016-07-30 19:26 | ED MED RECONCILIATION SUMMARY ---
Patient: SANTOS ESCALANTE Medication Reconciliation Report [facility] VisitID: [id number] [address] [place] [address] 55y, F Registration Date/Time: 07/23/2016 Weight: 48.5 kg Height/Length: 60 in. BMI: 20.9 ALLERGIES: None The patient's Home Medications are listed below: CONTINUE TAKING THE FOLLOWING MEDICATIONS: Acyclovir Oral 1 gm, daily Advil Oral Ambien Oral 12.5 mg, at bedtime Gralise Oral (600 mg) 4 tabs, daily LaMICtal Oral (150 mg) 1 tablet, at bedtime Levothyroxine Sodium Oral 25 mcg, daily LORazepam Oral 0.5 mg, daily Lumigan Ophthalmic movantik OxyCODONE HCl Oral 10 mg, 4x a day Vitamins Oral Probiotic Oral Promethazine HCl Oral 25 mg, 4x a day SEROquel Oral (400 mg), at bedtime Stool Softener Oral Timoptic Ophthalmic TiZANidine HCl Oral 4 mg, 4x a day Zofran Oral 4 mg, daily The source(s) of the original Home Medication information: Not obtained. The following Medications were given to the patient in the Emergency Department: None. The following Medications were prescribed to the patient: None.
--- NOTE | 2016-07-30 19:26 | ED DISCHARGE INSTRUCTIONS ---
Patient: SANTOS ESCALANTE General Instructions [facility] VisitID: [id number] [place] [address] 55y, F Registration Date/Time: 07/23/2016 Palpitations Paresthesia INSTRUCTIONS Warnings: Further evaluation is necessary. Your Current Medications: CONTINUE TAKING THE FOLLOWING MEDICATIONS: Acyclovir Oral : 1 gm daily. Advil Oral. Ambien Oral : 12.5 mg at bedtime. Gralise Oral : Tablet 600 mg, 4 tabs daily. LaMICtal Oral : Tablet 150 mg, 1 tablet at bedtime. Levothyroxine Sodium Oral : 25 mcg daily. LORazepam Oral : 0.5 mg daily. Lumigan Ophthalmic. movantik*. OxyCODONE HCl Oral : 10 mg 4x a day. Vitamins Oral. Probiotic Oral. Promethazine HCl Oral : 25 mg 4x a day. SEROquel Oral : Tablet 400 mg, at bedtime. Stool Softener Oral. Timoptic Ophthalmic. TiZANidine HCl Oral : 4 mg 4x a day. Zofran Oral : 4 mg daily. Follow-up: Follow up with a neurologist- as recommended by your primary care physician. Understanding of the discharge instructions verbalized by patient. Follow-up with: Dorian Ferro MD, [facility], , [facility], [address] [place] [address] Follow up in seven days. Call for the next available appointment. ADDITIONAL INFORMATION Heart Palpitations Palpitations refers to the feeling that your heart is beating hard, fast or irregular. Some people describe it as "pounding" or "skipped beats". Palpitations may occur in persons with heart disease, but can also occur in healthy persons. Heart-Related Causes: Arrhythmia (a change from the heart's normal rhythm) Disease of the heart valves [id number] Causes: Certain medicines (such as asthma inhalers and decongestants) Some herbal supplements, energy drinks and pills, and weight loss pills Illegal stimulant drugs (such as cocaine, crank, methamphetamine, PCP) Caffeine, alcohol and tobacco Medical conditions such as thyroid disease, anemia, anxiety and panic disorder Sometimes the cause cannot be found. Home Care: Avoid excess caffeine, alcohol, tobacco and any stimulant drugs. Tell your doctor about any prescription or lnjn-wmp-[id number] or herbal medicines you take. Follow Up with your doctor or as advised by our staff. Get Prompt Medical Attention if any of the following occur together with palpitations: Weakness, dizziness, light-headed or fainting Chest pain or shortness of breath Rapid heart rate (over 120 beats per minute, at rest) Palpitations that lasts over 20 minutes Weakness of an arm or leg or one side of the face Difficulty with speech or vision Paraesthesias Paraesthesia refers to a burning or prickling sensation that is sometimes felt in the hands, arms, legs or feet. It can also occur in other parts of the body. It can also feel like tingling or numbness, skin crawling or itching.The sensation is usually painless. Most people have experienced pins and needles. This feeling happens when legs have been crossed for too long and pressure is placed on a nerve. This is a temporary paraesthesia. It quickly goes away once the pressure is relieved. There are many possible causes for chronic paraesthesias. These include such disorders as stroke, herniated disk (pressing on a nerve), trapped nerve in the shoulder, elbow or wrist (such as carpal tunnel syndrome), vitamin deficiencies or even certain medicines. Laboratory tests are needed to make an accurate diagnosis. These tests may include blood tests, X-ray, CT (computerized tomography) scan or a muscle test (electromyography).Depending on the cause, treatment may include physical therapy. Home Care: Do not make any changes to your medicines without advice from your doctor. If vitamins have been prescribed, remember to take them daily at the recommended dose. Because of a decrease in feeling, a numb hand or foot may be more prone to injury. Take care to protect these areas from cuts, bumps, bruises, umanzor or other injury. Keep your nails trimmed and wash your hands and feet often. Wear shoes that fit well to avoid pressure points, blisters and ulcers. Look at your hands and feet carefully (including the soles of your feet and between your toes) at least once a week and notify your doctor of any open wounds or signs of infection. Follow Up with your doctor or as advised by our staff. You may need further testing to determine the exact cause of your paraesthesia. [NOTE: If blood tests, X-ray, CT scan or electromyography were done, specialists will review them. You will be notified of any new findings that may affect your care.] Get Prompt Medical Attention if any of the following occur: Numbness or weakness of the face, one arm or one leg Slurred speech, confusion, trouble speaking, walking or seeing Severe headache, fainting spell, dizziness or seizure Chest, arm, neck or upper back pain Loss of bladder or bowel control Open wound with redness, swelling or pus You have been given the following additional information: Palpitations Paraesthesias (Electronically signed by Jim Segundo MD 07/30/2016 19:26)
--- NOTE | 2016-07-30 19:26 | ED DISCHARGE INSTRUCTIONS ---
Patient: SANTOS ESCALANTE General Instructions [facility] VisitID: [id number] [place] [address] 55y, F Registration Date/Time: 07/23/2016 Palpitations Paresthesia INSTRUCTIONS Warnings: Further evaluation is necessary. Your Current Medications: CONTINUE TAKING THE FOLLOWING MEDICATIONS: Acyclovir Oral : 1 gm daily. Advil Oral. Ambien Oral : 12.5 mg at bedtime. Gralise Oral : Tablet 600 mg, 4 tabs daily. LaMICtal Oral : Tablet 150 mg, 1 tablet at bedtime. Levothyroxine Sodium Oral : 25 mcg daily. LORazepam Oral : 0.5 mg daily. Lumigan Ophthalmic. movantik*. OxyCODONE HCl Oral : 10 mg 4x a day. Vitamins Oral. Probiotic Oral. Promethazine HCl Oral : 25 mg 4x a day. SEROquel Oral : Tablet 400 mg, at bedtime. Stool Softener Oral. Timoptic Ophthalmic. TiZANidine HCl Oral : 4 mg 4x a day. Zofran Oral : 4 mg daily. Follow-up: Follow up with a neurologist- as recommended by your primary care physician. Understanding of the discharge instructions verbalized by patient. Follow-up with: Dorian Ferro MD, [facility], , [facility], [address] [place] [address] Follow up in seven days. Call for the next available appointment. ADDITIONAL INFORMATION Heart Palpitations Palpitations refers to the feeling that your heart is beating hard, fast or irregular. Some people describe it as "pounding" or "skipped beats". Palpitations may occur in persons with heart disease, but can also occur in healthy persons. Heart-Related Causes: Arrhythmia (a change from the heart's normal rhythm) Disease of the heart valves [id number] Causes: Certain medicines (such as asthma inhalers and decongestants) Some herbal supplements, energy drinks and pills, and weight loss pills Illegal stimulant drugs (such as cocaine, crank, methamphetamine, PCP) Caffeine, alcohol and tobacco Medical conditions such as thyroid disease, anemia, anxiety and panic disorder Sometimes the cause cannot be found. Home Care: Avoid excess caffeine, alcohol, tobacco and any stimulant drugs. Tell your doctor about any prescription or scdk-hzb-qlcmyro or herbal medicines you take. Follow Up with your doctor or as advised by our staff. Get Prompt Medical Attention if any of the following occur together with palpitations: Weakness, dizziness, light-headed or fainting Chest pain or shortness of breath Rapid heart rate (over 120 beats per minute, at rest) Palpitations that lasts over 20 minutes Weakness of an arm or leg or one side of the face Difficulty with speech or vision Paraesthesias Paraesthesia refers to a burning or prickling sensation that is sometimes felt in the hands, arms, legs or feet. It can also occur in other parts of the body. It can also feel like tingling or numbness, skin crawling or itching.The sensation is usually painless. Most people have experienced pins and needles. This feeling happens when legs have been crossed for too long and pressure is placed on a nerve. This is a temporary paraesthesia. It quickly goes away once the pressure is relieved. There are many possible causes for chronic paraesthesias. These include such disorders as stroke, herniated disk (pressing on a nerve), trapped nerve in the shoulder, elbow or wrist (such as carpal tunnel syndrome), vitamin deficiencies or even certain medicines. Laboratory tests are needed to make an accurate diagnosis. These tests may include blood tests, X-ray, CT (computerized tomography) scan or a muscle test (electromyography).Depending on the cause, treatment may include physical therapy. Home Care: Do not make any changes to your medicines without advice from your doctor. If vitamins have been prescribed, remember to take them daily at the recommended dose. Because of a decrease in feeling, a numb hand or foot may be more prone to injury. Take care to protect these areas from cuts, bumps, bruises, umanzor or other injury. Keep your nails trimmed and wash your hands and feet often. Wear shoes that fit well to avoid pressure points, blisters and ulcers. Look at your hands and feet carefully (including the soles of your feet and between your toes) at least once a week and notify your doctor of any open wounds or signs of infection. Follow Up with your doctor or as advised by our staff. You may need further testing to determine the exact cause of your paraesthesia. [NOTE: If blood tests, X-ray, CT scan or electromyography were done, specialists will review them. You will be notified of any new findings that may affect your care.] Get Prompt Medical Attention if any of the following occur: Numbness or weakness of the face, one arm or one leg Slurred speech, confusion, trouble speaking, walking or seeing Severe headache, fainting spell, dizziness or seizure Chest, arm, neck or upper back pain Loss of bladder or bowel control Open wound with redness, swelling or pus You have been given the following additional information: Palpitations Paraesthesias (Electronically signed by Jim Segundo MD 07/30/2016 19:26)
--- NOTE | 2016-07-30 19:26 | ED MED RECONCILIATION SUMMARY ---
Patient: SANTOS ESCALANTE Medication Reconciliation Report [facility] VisitID: [id number] [address] [place] [address] 55y, F Registration Date/Time: 07/23/2016 Weight: 48.5 kg Height/Length: 60 in. BMI: 20.9 ALLERGIES: None The patient's Home Medications are listed below: CONTINUE TAKING THE FOLLOWING MEDICATIONS: Acyclovir Oral 1 gm, daily Advil Oral Ambien Oral 12.5 mg, at bedtime Gralise Oral (600 mg) 4 tabs, daily LaMICtal Oral (150 mg) 1 tablet, at bedtime Levothyroxine Sodium Oral 25 mcg, daily LORazepam Oral 0.5 mg, daily Lumigan Ophthalmic movantik OxyCODONE HCl Oral 10 mg, 4x a day Vitamins Oral Probiotic Oral Promethazine HCl Oral 25 mg, 4x a day SEROquel Oral (400 mg), at bedtime Stool Softener Oral Timoptic Ophthalmic TiZANidine HCl Oral 4 mg, 4x a day Zofran Oral 4 mg, daily The source(s) of the original Home Medication information: Not obtained. The following Medications were given to the patient in the Emergency Department: None. The following Medications were prescribed to the patient: None.
--- NOTE | 2016-07-30 19:26 | ED MAR SUMMARY ---
..... Medication Administration Record [facility] [address] [place], [place] [id number] Patient: SANTOS ESCALANTE Robert Visit ID: [id number] 55y, F Weight: 48.5 kg Height/Length: 60 in BMI: 20.9 ALLERGIES: None
--- NOTE | 2016-07-30 19:26 | ED MAR SUMMARY ---
..... Medication Administration Record [facility] [address] [place], [place] [id number] Patient: SANTOS ESCALANTE Robert Visit ID: [id number] 55y, F Weight: 48.5 kg Height/Length: 60 in BMI: 20.9 ALLERGIES: None
== END 2016-07-23 15:50 | disposition home or self-care (01) ==
LOC: ED SRH 11:39
DX: R00.2 Palpitations (principal); R20.2 Paresthesia of skin; R19.7 Diarrhea, unspecified
CPT/HCPCS: 90004; 90100; 90616; 91320; 92235; 92530; 92610; 93140; 95059